=== PATIENT | female | born 1965 | race Caucasian/White ===

== ENCOUNTER 2022-07-03 17:48 | Inpatient (IN) | payer OTHER, SELFPAY ==
[2022-07-03] VITALS (35 sets, daily range): BP systolic 103–166; BP diastolic 47–110; PULSE 65–84; RESP 13–24; TEMP 36.4; O2SAT 94–100
--- NOTE | ~2022-07-03 | XR_ITS ---
EXAMINATION: XR chest 1V portable Exam Date/Time: 07/03/2022 18:00 CDT HISTORY: sob Comparison: None available. RESULT: Lines, tubes, and devices: None. Lungs and pleura: Emphysematous changes. Cardiomediastinal silhouette: Aortic arch calcification. Normal heart size. Other: No acute osseous or upper abdominal finding. IMPRESSION: No acute cardiopulmonary process. Emphysema. Reviewed, dictated and finalized at location K.
--- NOTE | ~2022-07-03 | CT_ITS ---
EXAMINATION: CTA chest PE protocol DATE: 07/03/2022 23:09 INDICATION: Shortness of breath. TECHNIQUE: Computed tomography angiography (CTA) of the chest was performed with 100 mL Omnipaque-350 intravenous contrast timed to evaluate the pulmonary arteries. Coronal maximum intensity projection 3D-reconstructions were created by the technologist. Automated exposure control and iterative reconst ruction technique were employed. The dose-length product was 153.40 mGy-cm. COMPARISON: Chest single view 07/03/2022 FINDINGS: There is severe emphysema. There is mild atelectasis in lingula. There is mild scarring at the lung apices. No pleural effusion. The heart size is normal. No pericardial effusion. There is no pulmonary embolus. There is mild chronic anterior wedging of multiple thoracic vertebral bodies. Ther e is moderate thoracic spondylosis. IMPRESSION: 1. No pulmonary embolus. 2. Severe emphysema. Reviewed, dictated and finalized at location B.
--- NOTE | 2022-07-03 17:52 | ECG_ITS ---
Measurements Intervals [place] Rate: 88 P: 87 ND: 123 QRS: 84 QRSD: 86 T: 59 QT: 311 QTc: 377 Interpretive Statements SINUS RHYTHM NONSPECIFIC ST ABNORMALITY ABNORMAL EKG Electronically Signed On 07-04-2022 9:25:58 CDT by Osvaldo Izaguirre M.D.
[2022-07-03 18:07] LABS: Basophils Percent Auto 0.1 % (0.2-1.2); Eosinophils Percent Auto 0.1 % (0-4.4); Hemoglobin 15.8 g/dL (12.0-15.0); Immature Granulocyte Absolute 0.03 K/mm3 (0.00-0.031); Immature Granulocyte Percent A 0.3 % (0-0.5); Lymphocytes Absolute Auto 2.81 K/mm3 (0.9-3.2); Lymphocytes Percent Auto 23.5 % (18.3-44.2); Mean Corpuscular HGB Conc 32.2 g/dl (32-36); Mean Corpuscular Volume 99.2 fl (80-100); Mean Platelet Volume 9.9 fl (7.4-10.4); Monocytes Absolute Auto 0.9 K/mm3 (0.1-0.6); Monocytes Percent Auto 7.7 % (2.6-8.5); Neutrophils Absolute Auto 8.2 K/mm3 (1.3-6.7); Neutrophils Percent Auto 68.3 % (45.5-73.1); Platelet Count Result 315 k/mm3 (150-375); Red Blood Count 4.94 M/mm3 (4.2-5.4); Red Cell Distribution Width 12.5 % (11.5-14.5)
[2022-07-03 18:18] LABS: Alanine Aminotransferase 30 U/L (6-35); Albumin Level 4.6 g/dL (3.5-5.1); Alkaline Phosphatase 88 U/L (38-126); Anion Gap 9 mmol/L (8-16); Aspartate Amino Transferase 38 U/L (14-36); Bilirubin,Total 0.3 mg/dL (0.2-1.3); Blood Urea Nitrogen 24 mg/dL (7-17); Calcium 9.6 mg/dL (8.4-10.2); Carbon Dioxide 36 mmol/L (22-30); Chloride 91 mmol/L (98-107); Estimated CRCL calculation 43 ml/min; Estimated Glomerular Filt Rate 57; Glucose 98 mg/dL (65-110); Potassium 4.7 mmol/L (3.4-5.0); Sodium 136 mmol/L (137-145)
[2022-07-03 18:44] LABS: Influenza A QL RT-PCR Negative (Negative); Influenza B QL RT-PCR Negative (Negative); SARS-CoV-2 RNA PCR Negative
--- NOTE | 2022-07-03 19:30 | ED.SOB ---
HPI - SOB/Dyspnea General Chief Complaint: Shortness of Breath/Dyspnea Stated Complaint: SOB HX COPD Time Seen by Provider: 07/03/22 19:06 History of Present Illness HPI Narrative: 56-year-old female with atrial fibrillation and emphysema smokes 1 pack/day presents to the emergency room for shortness of breath difficulty breathing for 2-1/2 weeks. `Patient states she has gone to urgent care 2 weeks ago and was diagnosed with an upper respiratory infection. Patient states she was given a 6-day course of prednisone which she completed 2 days ago. Patient states she is having difficulty taking a deep breath. Patient presented via EMS, was placed on oxygen for low SPO2, and given a breathing treatment. Patient admits to little improvement following the breathing treatment. Related Data Allergies Allergy/AdvReac Type Severity Reaction Status Date / Time No Known Allergies Allergy Verified 07/03/22 18:44 Review of Systems Review of Systems: CONSTITUTIONAL: Denies fever, chills, or sweats. EYES: Denies visual changes, redness, or discharge. ENT: Denies rhinorrhea, congestion, sore throat, or otalgia. CARDIOVASCULAR: Denies chest pain, palpitations, or edema. RESPIRATORY: Reports dyspnea. GASTROINTESTINAL: Denies abdominal pain, nausea, vomiting, or diarrhea. GENITOURINARY: Denies dysuria or hematuria. SKIN: Denies rash or itching. MUSCULOSKELETAL: Denies back pain, joint pain, or myalgia. NEUROLOGIC: Denies headache, numbness, dizziness, or weakness. PSYCHIATRIC: Denies anxiety or depression. Exam Narrative: GENERAL: Well-appearing, well-nourished, no physical limitations, and in no acute distress. HEAD: Normocephalic, atraumatic. EYES: Conjunctivae normal, PERRLA and EOMI. CHEST: Decreased breath sounds throughout. Increased accessory muscle use HEART: Regular rate and rhythm. No murmur heard. Normal peripheral pulses. ABDOMEN: Soft, nontender, nondistended, normal active bowel sounds. EXTREMITIES: Normal range of motion. No edema. No clubbing or cyanosis SKIN: Warm, dry, no rash. No noted wounds NEURO: No focal deficits. Alert and oriented x3. MAEW. CN's II-XI intact bilaterally, normal gait PSYCH: Cooperative. Normal mood and affect. Course Course Emergency Course: 1944: Oxygen removed prior to ABG study. SPO2 dropped to 84% on room air. Patient became agitated and demanded O2 be turned back on. O2 at 2L per NC was restarted. SpO2 is now 96% Vital Signs Vital signs: Vital Signs Temperature 36.4 C 07/03/22 17:47 Pulse Rate 84 07/03/22 17:47 Respiratory Rate 14 07/03/22 17:47 Blood Pressure 166/110 H 07/03/22 17:47 Pulse Oximetry 100 07/03/22 17:47 Oxygen Delivery Non-Rebreather Mask 07/03/22 17:47 Oxygen Flow Rate 15 07/03/22 17:47 Temperature 36.4 C 07/03/22 17:47 Pulse Rate 71 07/04/22 01:17 Respiratory Rate 14 07/04/22 01:17 Blood Pressure 98/60 L 07/04/22 00:16 Pulse Oximetry 94 07/03/22 20:01 Oxygen Delivery Room Air 07/03/22 18:39 Oxygen Flow Rate 15 07/03/22 17:47 MDM - SOB/Dyspnea Lab Data Result diagrams: 07/03/22 18:01 07/03/22 18:01 Labs: Lab Results 07/03/22 07/03/22 07/03/22 Range/Units 18:01 18:01 18:01 WBC 12.0 H (4.5-10.0) K/mm3 RBC 4.94 (4.2-5.4) M/mm3 Hgb 15.8 H (12.0-15.0) g/dL Hct 49.0 H (37.0-47.0) % MCV 99.2 (80-100) fl MCH 32.0 (26-34) pg MCHC 32.2 (32-36) g/dl RDW 12.5 (11.5-14.5) % Plt Count 315 (150-375) k/mm3 MPV 9.9 (7.4-10.4) fl Immature Gran % (Auto) 0.3 (0-0.5) % Neut % (Auto) 68.3 (45.5-73.1) % Lymph % (Auto) 23.5 (18.3-44.2) % Mitchell % (Auto) 7.7 (2.6-8.5) % Eos % (Auto) 0.1 (0-4.4) % Baso % (Auto) 0.1 L (0.2-1.2) % Lymph # (Auto) 2.81 (0.9-3.2) K/mm3 Mitchell # (Auto) 0.9 H (0.1-0.6) K/mm3 Eos # (Auto) 0.0 (0-0.3) K/mm3 Baso # (Auto) 0.0 (0.0-0.1) K/mm3 Abs Immat Gran (auto) 0.03 (0.00-0.0
[2022-07-03] MEDS: methylPREDNISolone SOD SUCC 125 MG VIAL IV PUSH (19:36)
--- NOTE | 2022-07-03 19:38 | PC.NURSE ---
O2 sats 85% on room air. Pt unable to catch breathe, labored breathing. Placed on 2 Liters O2 via NC and O2 sats 94% with good wave form. Notified Tyshawn ERP
[2022-07-03] MEDS: IPRATROPIUM BR 0.02% INH SOLN 0.5 MG/2.5 ML VIAL INHALATION (20:03)
[2022-07-03] MEDS: ALBUTEROL SULFATE NEB 2.5 MG/3 ML INH INHALATION (20:03)
[2022-07-03 20:09] LABS: Alveolar/Arterial O2 Gradient 62.4 mmHg; Base Excess ABG 3.9 mEq/l (+/-2.0); Fractional Inspired Oxygen 28 %; HCO3 ABG 30.8 mEq/l (22.0-26.0); Oxygen Content ABG 19.5 %vol (16.0-22.0); Oxygen Saturation ABG 93.8 % (95.0-100.0); Oxyhemoglobin 89.1 % THb (90.0-100.0); PCO2 ABG 55.2 mmHg (35.0-45.0); PO2 ABG 72.1 mmHg (80.0-100.0); PO2 FiO2 Ratio Arterial Blood 2.58 %; Total Hemoglobin 15.6 g/dL (12.0-18.0); pH ABG 7.365 (7.350-7.450)
[2022-07-03 20:10] LABS: Device NASAL CANNULA; Modified Allen's Test Pass; Site Drawn LEFT RADIAL
[2022-07-04] VITALS (28 sets, daily range): BP systolic 98–152; BP diastolic 54–95; PULSE 64–94; RESP 13–20; TEMP 36.4–36.9; O2SAT 94–100; BMI 19.5
--- NOTE | 2022-07-04 02:16 | ADMGEN ---
This patient, Shiela Ontiveros, was admitted to Medical Room 342-. Patient/family oriented to hospital policies and general routines including ID bracelet, bed and alarms, visiting hours, pain management, procedures, bathroom and other care routines, personal items, smoking policy, room service/diet, and visiting hours. Information on how to activate the Rapid Response Team has been discussed. Patient/Family are encouraged to report perceived risks to care and to ask questions if they do not understand what they are told or what they should do.
[2022-07-04] MEDS: ALBUTEROL SULFATE NEB 2.5 MG/3 ML INH INHALATION ×2 (02:40→07:53)
[2022-07-04] MEDS: methylPREDNISolone SOD SUCC 125 MG VIAL 60 MG IV PUSH ×3 (06:24→21:22)
[2022-07-04] MEDS: FLUTICASONE/SALMETEROL 115-21 MCG INHALER 1 PUFF 2 PUFF INHALATION (08:00)
--- NOTE | 2022-07-04 08:11 | PM.IMHP ---
H&P: HPI History of Present Illness Date/Time: 07/04/22 06:30 Chief Complaint: Difficulty breathing Narrative: 56-year-old female with past medical history of COPD, paroxysmal AFib and continues tobacco abuse who presented to the ER with shortness of breath. The patient reports that she has been short of breath since the . She went to urgent care and received a prescription for Medrol Dosepak but for whatever reason the pharmacy could not fill her script until 3 or 4 days ago. Despite taking the Medrol Dosepak her shortness of breath was getting progressively worse. She had a cough that was nonproductive. She stated she she knew that she was having more trouble getting air in his well as breathing out. She was having the lean forward to take deep breaths. Last night her symptoms culminated when she could not get comfortable in bed on her pillows. She finally decided to come into the ER. When she arrived to the ER the patient was satting in the low 90s initially. After nebulizer treatment patient's oxygen saturations dropped to 84%. She had tried using her home nebulizer treatments at least twice a day sometimes up to 4 times a day with little improvement in her symptoms. She was also using her home Symbicort and Spiriva. She has not missed any doses of her medications. She denies any chest pain she does feels tight as if she can not get of breath. She denies any palpitations or diaphoresis. She denies any recent ill contacts. She received her primary vaccine series for COVID but has not had her booster. She wants her flu shot. She denies any GI symptoms. She has not had any difficulty with urination. She reports that she has always had a thin body habitus and reports of extremely good appetite. She was still continuing to work despite her symptoms until the at which time she missed days at work and lost her job because she was still in the probationary period. She recently moved back up here from [place]. She had moved down to [place] for 6 months to be closer to her daughter but was having difficulty finding work so decided to return to this area. Review of Systems Review of Systems: 12 systems were reviewed with pertinent positives and negatives per HPI. Except as documented in the HPI, all other systems were reviewed and are negative. [facility] Past Medical History Medical History (Updated 07/04/22 @ 08:43 by Monica Prabhakar DO) COPD with emphysema Hyperlipidemia Paroxysmal atrial fibrillation Sciatica Tobacco use disorder, continuous Surgical History Surgical History (Updated 07/04/22 @ 08:34 by Monica Prabhakar DO) History of rhinoplasty As a child due to trauma History of right inguinal hernia repair (~2019) Status post open reduction with internal fixation of fracture Left radial fracture as a child Family History Family History (Updated 07/04/22 @ 08:36 by Monica Prabhakar DO) Sibling Hypertension Sibling Breast cancer Cerebral aneurysm Mother Heart disease A-fib Social History Social History (Updated 07/04/22 @ 08:36 by Monica Prabhakar DO) Social History: She has smoked as much as 1 pack of cigarettes per day but has cut back to half a pack of cigarettes per day. She has smoked since she was 15. Smoking packs per day: 0.5 Smoking cigarettes per day: 10.0 Smoking status: Current every day smoker Tobacco type: cigarettes Alcohol intake: never Substance use type: marijuana Spiritual care concerns: No Meds Home Medications and Allergies Home Medications Medication Instructions Recorded Confirmed Type albuterol sulfate 90 mcg/actuation 1 inh inhalation PRN PRN Shortness 07/04/22 07/04/22 History aerosol inhaler Of Breath apixaban 5 mg tablet (Eliquis) 5 mg DAILY 07/04/22 07/04/22 History aspirin 81 mg chewable tablet 81 mg PO DAILY 07/04/22 07/04/22 History atorvastatin 80 mg tablet 80 mg PO DAILY 07/04/22 07/04/22 History budesonide-formoterol HFA 160 2 p
[2022-07-04] MEDS: METOPROLOL SUCCINATE EXT REL 100 MG TABCR PO (10:04)
[2022-07-04] MEDS: ATORVASTATIN 40 MG TABLET 80 MG PO (10:04)
[2022-07-04] MEDS: ASPIRIN 81 MG CHEWABLE TABLET PO (10:04)
[2022-07-04] MEDS: APIXABAN 5 MG TABLET BY MOUTH ×2 (10:06→21:22)
[2022-07-04] MEDS: IPRATROPIUM BR 0.02% INH SOLN 0.5 MG/2.5 ML VIAL INHALATION ×3 (12:44→20:49)
[2022-07-04] MEDS: ALBUTEROL SULFATE NEB 2.5 MG/3 ML INH 5 MG INHALATION ×3 (12:46→20:49)
[2022-07-04] MEDS: guaiFENesin 12 HR 600 MG TABCR PO (21:22)
[2022-07-05] VITALS (19 sets, daily range): BP systolic 112–132; BP diastolic 56–63; PULSE 66–84; RESP 14–22; TEMP 36.2–37.1; O2SAT 91–100
[2022-07-05] MEDS: IPRATROPIUM BR 0.02% INH SOLN 0.5 MG/2.5 ML VIAL INHALATION ×6 (00:47→20:02)
[2022-07-05] MEDS: ALBUTEROL SULFATE NEB 2.5 MG/3 ML INH 5 MG INHALATION ×7 (00:47→20:02)
[2022-07-05] MEDS: methylPREDNISolone SOD SUCC 125 MG VIAL 60 MG IV PUSH (06:23)
[2022-07-05] MEDS: FLUTICASONE/SALMETEROL 115-21 MCG INHALER 1 PUFF 2 PUFF INHALATION ×2 (07:34→20:03)
[2022-07-05] MEDS: ATORVASTATIN 40 MG TABLET 80 MG PO (08:34)
[2022-07-05] MEDS: APIXABAN 5 MG TABLET BY MOUTH ×2 (08:34→21:06)
[2022-07-05] MEDS: ASPIRIN 81 MG CHEWABLE TABLET PO (08:34)
[2022-07-05] MEDS: METOPROLOL SUCCINATE EXT REL 100 MG TABCR PO (08:35)
[2022-07-05] MEDS: guaiFENesin 12 HR 600 MG TABCR PO ×2 (08:35→21:06)
--- NOTE | 2022-07-05 12:49 | PM.IMPN ---
Progress Note: A&P Assessment and Plan (1) Acute on chronic respiratory failure with hypoxia and hypercapnia: Code(s): J96.21 - Acute and chronic respiratory failure with hypoxia; J96.22 - Acute and chronic respiratory failure with hypercapnia Status: Acute Assessment and Plan: will discontinue IV steroids and start prednisone 50 mg daily tomorrow pulmonology consult pending (2) Acute exacerbation of chronic obstructive airways disease: Code(s): J44.1 - Chronic obstructive pulmonary disease with (acute) exacerbation Status: Acute Assessment and Plan: added Mucomyst, Mucinex, Afrin, pep therapy, continue home Symbicort, scheduled albuterol and ipratropium (3) Tobacco use disorder, continuous: Code(s): F17.209 - Nicotine dependence, unspecified, with unspecified nicotine-induced disorders Status: Acute Assessment and Plan: continue Chantix, currently on 0.5 mg daily, will increase to 0.5 mg BID days 4-7, then 1 mg BID Plan DVT prophylaxis with SCDs GI prophylaxis not indicated Code status full code Subjective Date/time seen: 07/05/22 12:49 Interval history: Patient states she feels much better than yesterday, but still extremely short of breath. She would like to go home tomorrow on oxygen and oral steroids. She denies any fevers or chills, no sick contacts or recent travel. She did complete an outpatient Z-Joshua that did not seem to do much for her. No overnight events noted. No chest pain. No nausea, vomiting or diarrhea. No fevers or chills. Review of Systems Review of Systems: 12 point review of systems was assessed and was negative except as noted in the HPI Exam Narrative: General: Mild acute respiratory distress HEENT: Atraumatic, normocephalic, mucous membranes moist CV: Regular rate and rhythm, S1, S2 Lungs: extremely diminished lung sounds throughout, some very small and expiratory wheezes, poor air entry Abdomen: Soft, nontender, nondistended Extremities: Normal to inspection Skin: No rashes noted, no lesions or wounds seen Psych: Euthymic, normal affect Objective Data Vital Signs Vital Signs: Vital Signs - 24 hr 07/04/22 12:56 07/04/22 14:38 07/04/22 16:10 Temperature 98.4 F Pulse Rate 86 72 83 Respiratory Rate 15 16 16 Blood Pressure 136/95 H Pulse Oximetry 100 Oxygen Delivery Oxygen Flow Rate 07/04/22 16:17 07/04/22 19:43 07/04/22 20:50 Temperature 98 F Pulse Rate 87 84 94 Respiratory Rate 16 20 18 Blood Pressure 152/82 H Pulse Oximetry 94 Oxygen Delivery Oxygen Flow Rate 07/04/22 20:52 07/04/22 20:30 07/05/22 00:47 Temperature Pulse Rate 74 Respiratory Rate 14 Blood Pressure Pulse Oximetry 95 95 Oxygen Delivery Nasal Cannula Nasal Cannula Oxygen Flow Rate 3 2 07/05/22 05:05 07/05/22 05:34 07/05/22 07:35 Temperature 97.2 F L Pulse Rate 72 66 72 Respiratory Rate 16 18 18 Blood Pressure 130/63 Pulse Oximetry 100 Oxygen Delivery Oxygen Flow Rate 07/05/22 07:35 07/05/22 07:46 07/05/22 08:35 Temperature Pulse Rate 76 67 Respiratory Rate 22 H Blood Pressure Pulse Oximetry 98 Oxygen Delivery Nasal Cannula Oxygen Flow Rate 2 07/05/22 08:30 07/05/22 11:22 07/05/22 11:22 Temperature Pulse Rate 71 Respiratory Rate 22 H Blood Pressure Pulse Oximetry 98 91 Oxygen Delivery Nasal Cannula Nasal Cannula Oxygen Flow Rate 2 2 07/05/22 11:28 Temperature Pulse Rate 79 Respiratory Rate 22 H Blood Pressure Pulse Oximetry Oxygen Delivery Oxygen Flow Rate Intake/Output Intake/Output: Intake & Output 07/02/22 07/03/22 07/04/22 07/05/22 23:59 23:59 23:59 23:59 Intake Total 1550 630 Balance 1550 630 Meds/Results Medications: Active Medications Generic Name Dose Route Start Last Admin Trade Name Freq PRN Reason Stop Dose Admin Albuterol 5 mg 07/04/22 12:00 07/05/22 11:19
[2022-07-05 13:04] LABS: Basophils Percent Auto 0.1 % (0.2-1.2); Hematocrit 48.1 % (37.0-47.0); Hemoglobin 15.2 g/dL (12.0-15.0); Immature Granulocyte Absolute 0.06 K/mm3 (0.00-0.031); Immature Granulocyte Percent A 0.5 % (0-0.5); Lymphocytes Absolute Auto 0.62 K/mm3 (0.9-3.2); Lymphocytes Percent Auto 4.8 % (18.3-44.2); Mean Corpuscular HGB Conc 31.6 g/dl (32-36); Mean Corpuscular Hemoglobin 31.6 pg (26-34); Mean Platelet Volume 10.1 fl (7.4-10.4); Monocytes Absolute Auto 0.7 K/mm3 (0.1-0.6); Monocytes Percent Auto 5.1 % (2.6-8.5); Neutrophils Absolute Auto 11.6 K/mm3 (1.3-6.7); Neutrophils Percent Auto 89.5 % (45.5-73.1); Platelet Count Result 291 k/mm3 (150-375); Red Blood Count 4.81 M/mm3 (4.2-5.4); White Blood Count 12.9 K/mm3 (4.5-10.0)
[2022-07-05 13:16] LABS: Alanine Aminotransferase 31 U/L (6-35); Albumin Level 4.4 g/dL (3.5-5.1); Alkaline Phosphatase 100 U/L (38-126); Anion Gap 8 mmol/L (8-16); Aspartate Amino Transferase 35 U/L (14-36); Bilirubin,Total 0.5 mg/dL (0.2-1.3); Blood Urea Nitrogen 20 mg/dL (7-17); Calcium 9.2 mg/dL (8.4-10.2); Carbon Dioxide 35 mmol/L (22-30); Chloride 92 mmol/L (98-107); Estimated CRCL calculation 67 ml/min; Estimated Glomerular Filt Rate > 60; Glucose 133 mg/dL (65-110); Potassium 4.3 mmol/L (3.4-5.0); Sodium 135 mmol/L (137-145)
[2022-07-05] MEDS: LORATADINE 10 MG TABLET PO (14:34)
[2022-07-05] MEDS: OXYMETAZOLINE HCL 0.05% NAS 15 ML BTL (*BKC) 1 SPRAY NASAL (14:34)
[2022-07-05] MEDS: guaiFENesin 600 MG/DEXTROMETHORPHAN 30 MG SR TAB 12 HR 1 TAB PO ×2 (14:35→21:06)
[2022-07-05] MEDS: DORNASE ALFA INH SOLN 1 MG/ML 2.5 ML AMP 2.5 MG INHALATION (20:02)
[2022-07-06] VITALS (25 sets, daily range): BP systolic 110–135; BP diastolic 58–72; PULSE 69–104; RESP 16–24; TEMP 36.6–36.7; O2SAT 86–100
[2022-07-06] MEDS: ALBUTEROL SULFATE NEB 2.5 MG/3 ML INH 5 MG INHALATION ×5 (00:05→15:55)
[2022-07-06] MEDS: IPRATROPIUM BR 0.02% INH SOLN 0.5 MG/2.5 ML VIAL INHALATION ×6 (00:05→19:57)
[2022-07-06 05:56] LABS: Basophils Percent Auto 0.2 % (0.2-1.2); Hematocrit 43.7 % (37.0-47.0); Hemoglobin 13.8 g/dL (12.0-15.0); Immature Granulocyte Absolute 0.08 K/mm3 (0.00-0.031); Immature Granulocyte Percent A 0.7 % (0-0.5); Lymphocytes Absolute Auto 1.87 K/mm3 (0.9-3.2); Lymphocytes Percent Auto 15.3 % (18.3-44.2); Mean Corpuscular HGB Conc 31.6 g/dl (32-36); Mean Corpuscular Volume 101.4 fl (80-100); Mean Platelet Volume 10.3 fl (7.4-10.4); Monocytes Absolute Auto 0.9 K/mm3 (0.1-0.6); Monocytes Percent Auto 6.9 % (2.6-8.5); Neutrophils Absolute Auto 9.4 K/mm3 (1.3-6.7); Neutrophils Percent Auto 76.9 % (45.5-73.1); Platelet Count Result 245 k/mm3 (150-375); Red Blood Count 4.31 M/mm3 (4.2-5.4); Red Cell Distribution Width 11.9 % (11.5-14.5); White Blood Count 12.2 K/mm3 (4.5-10.0)
[2022-07-06 06:17] LABS: Alanine Aminotransferase 32 U/L (6-35); Albumin Level 3.7 g/dL (3.5-5.1); Alkaline Phosphatase 73 U/L (38-126); Anion Gap 4 mmol/L (8-16); Aspartate Amino Transferase 33 U/L (14-36); Bilirubin,Total 0.2 mg/dL (0.2-1.3); Blood Urea Nitrogen 21 mg/dL (7-17); Carbon Dioxide 34 mmol/L (22-30); Chloride 95 mmol/L (98-107); Estimated CRCL calculation 79 ml/min; Estimated Glomerular Filt Rate > 60; Glucose 88 mg/dL (65-110); Potassium 4.6 mmol/L (3.4-5.0); Sodium 133 mmol/L (137-145)
[2022-07-06] MEDS: DORNASE ALFA INH SOLN 1 MG/ML 2.5 ML AMP 2.5 MG INHALATION (08:28)
[2022-07-06] MEDS: FLUTICASONE/SALMETEROL 115-21 MCG INHALER 1 PUFF 2 PUFF INHALATION ×2 (08:29→19:57)
[2022-07-06] MEDS: predniSONE 40 MG, predniSONE 10 MG 50 MG PO (09:07)
[2022-07-06] MEDS: ASPIRIN 81 MG CHEWABLE TABLET PO (09:07)
[2022-07-06] MEDS: guaiFENesin 600 MG/DEXTROMETHORPHAN 30 MG SR TAB 12 HR 1 TAB PO ×2 (09:08→20:20)
[2022-07-06] MEDS: METOPROLOL SUCCINATE EXT REL 100 MG TABCR PO (09:08)
[2022-07-06] MEDS: ATORVASTATIN 40 MG TABLET 80 MG PO (09:10)
[2022-07-06] MEDS: VARENICLINE 0.5 MG TABLET PO (09:10)
[2022-07-06] MEDS: APIXABAN 5 MG TABLET BY MOUTH ×2 (09:10→20:20)
[2022-07-06] MEDS: LORATADINE 10 MG TABLET PO (09:11)
--- NOTE | 2022-07-06 11:41 | PM.IMPN ---
Progress Note: A&P Assessment and Plan (1) Acute on chronic respiratory failure with hypoxia and hypercapnia: Code(s): J96.21 - Acute and chronic respiratory failure with hypoxia; J96.22 - Acute and chronic respiratory failure with hypercapnia Status: Acute Assessment and Plan: started on IV steroid switched to oral feeling well today Will put her back on IV pulmonology consult pending (2) Acute exacerbation of chronic obstructive airways disease: Code(s): J44.1 - Chronic obstructive pulmonary disease with (acute) exacerbation Status: Acute Assessment and Plan: added Mucomyst, Mucinex, Afrin, pep therapy, continue home Symbicort, scheduled albuterol and ipratropium Add schedule Mucomyst (3) Tobacco use disorder, continuous: Code(s): F17.209 - Nicotine dependence, unspecified, with unspecified nicotine-induced disorders Status: Acute Assessment and Plan: continue Chantix, counseled on smoking cessation Plan DVT prophylaxis with SCDs GI prophylaxis not indicated Code status full code Subjective Date/time seen: 07/06/22 11:41 Interval history: Patient still feels short of breath. She still requiring oxygen. Cough present but it is dry. No fever or chills Review of Systems Review of Systems: All systems reviewed & are unremarkable except as noted in HPI and below Exam Narrative: General: no acute respiratory distress; alert and oriented x3 HEENT: Atraumatic, normocephalic, mucous membranes moist CV: Regular rate and rhythm, S1, S2 Lungs: extremely diminished lung sounds throughout, no wheezes or crackles Abdomen: Soft, nontender, nondistended Extremities: Normal to inspection Skin: No rashes noted, no lesions or wounds seen Psych: Euthymic, normal affect Objective Data Vital Signs Vital Signs: Vital Signs - 24 hr 07/05/22 14:20 07/05/22 14:32 07/05/22 15:00 Temperature 98.8 F Pulse Rate 76 81 78 Respiratory Rate 22 H 22 H 18 Blood Pressure 112/60 Pulse Oximetry 99 Oxygen Delivery Oxygen Flow Rate 07/05/22 16:56 07/05/22 17:06 07/05/22 20:03 Temperature Pulse Rate 84 75 79 Respiratory Rate 22 H 20 22 H Blood Pressure Pulse Oximetry Oxygen Delivery Oxygen Flow Rate 07/05/22 20:09 07/05/22 20:26 07/05/22 20:39 Temperature 97.2 F L Pulse Rate 77 76 Respiratory Rate 22 H 18 Blood Pressure 132/56 L Pulse Oximetry 95 100 Oxygen Delivery Nasal Cannula Oxygen Flow Rate 3 07/05/22 20:00 07/06/22 00:05 07/06/22 00:15 Temperature Pulse Rate 76 74 Respiratory Rate 20 20 Blood Pressure Pulse Oximetry 100 Oxygen Delivery Nasal Cannula Oxygen Flow Rate 3 07/06/22 05:58 07/06/22 04:21 07/06/22 04:30 Temperature 98 F Pulse Rate 74 74 75 Respiratory Rate 20 20 20 Blood Pressure 110/59 L Pulse Oximetry 100 Oxygen Delivery Oxygen Flow Rate 07/06/22 08:25 07/06/22 08:30 07/06/22 08:37 Temperature Pulse Rate 77 69 Respiratory Rate 18 18 Blood Pressure Pulse Oximetry 96 Oxygen Delivery Nasal Cannula Oxygen Flow Rate 3 07/06/22 09:08 07/06/22 09:10 Temperature Pulse Rate 78 78 Respiratory Rate 18 Blood Pressure Pulse Oximetry 98 Oxygen Delivery Nasal Cannula Oxygen Flow Rate 3 Intake/Output Intake/Output: Intake & Output 07/03/22 07/04/22 07/05/22 07/06/22 23:59 23:59 23:59 23:59 Intake Total 1550 1110 580 Balance 1550 1110 580 Meds/Results Medications: Active Medications Generic Name Dose Route Start Last Admin Trade Name Lucianq PRN Reason Stop Dose Admin Albuterol 5 mg 07/04/22 12:00 07/06/22 08:28 Albuterol Sulfate Neb 2.5 Mg/3 Ml Inh INHALATION 5 mg Q4HRT SCAR Administration Apixaban 5 mg 07/04/22 21:00 07/06/22 09:10 Apixaban 5 Mg Tablet BY MOUTH 5 mg Q12HR SCAR Administration Aspirin 81 mg 07/04/22 09:00 07/06/22 09:07 Aspirin 81 Mg Chewable Tablet PO
--- NOTE | 2022-07-06 13:30 | HOMEO2EVAL ---
Evaluation was performed at [facility] Home Oxygen Evaluation RC: Home Oxygen (O2) Evaluation Start: 07/06/22 05:00 Freq: ONCE Status: Active Protocol: RPE Activity Type Activity Date Activity User E-sign Co-sign Detail Recorded Client Recorded Date Recorded By Document 07/06/22 12:45 DJO [email or web address] 07/06/22 13:30 DJO Document 07/06/22 12:50 [email or web address] [email or web address] 07/06/22 13:30 DJO Document 07/06/22 12:55 [email or web address] [email or web address] 07/06/22 13:30 DJO Document 07/06/22 13:00 [email or web address] [email or web address] 07/06/22 13:30 DJO Document 07/06/22 13:05 [email or web address] [email or web address] 07/06/22 13:30 DJO Document 07/06/22 13:15 [email or web address] [email or web address] 07/06/22 13:30 DJO 07/06/22 07/06/22 07/06/22 12:45 12:50 12:55 Home O2 Evaluation [Oxygen] -Test Phase Resting Resting Resting -Oxygen Delivery Room Air Nasal Cannula Nasal Cannula -Oxygen Flow Rate (L/min) 1 2 [Pulse Oximetry] -Pulse Oximetry (90-100 %) 86 L 88 L 91 [Pulse Rate] -Pulse Rate (60-100 beats/min) 88 85 82 [Exercise] -Ambulation Distance (feet) -Ambulation Distance (meters) [Charges] -Treatment Charges O2 Evaluation - Inpatient 07/06/22 07/06/22 07/06/22 13:00 13:05 13:15 Home O2 Evaluation [Oxygen] -Test Phase Exercise Exercise Resting -Oxygen Delivery Nasal Cannula Nasal Cannula Nasal Cannula -Oxygen Flow Rate (L/min) 2 3 2 [Pulse Oximetry] -Pulse Oximetry (90-100 %) 87 L 91 91 [Pulse Rate] -Pulse Rate (60-100 beats/min) 100 104 H 85 [Exercise] -Ambulation Distance (feet) 500 -Ambulation Distance (meters) 152.39 [Charges] -Treatment Charges
[2022-07-06] MEDS: ACETYLCYSTEINE 20% INHAL SOLN 800 MG/4 ML VIAL 200 MG INHALATION ×2 (15:55→19:57)
[2022-07-06] MEDS: methylPREDNISolone SOD SUCC 40 MG VIAL IV PUSH (17:49)
[2022-07-06] MEDS: ALBUTEROL SULFATE NEB 2.5 MG/3 ML INH INHALATION (19:57)
--- NOTE | 2022-07-06 20:03 | PCRCNOTE ---
RT called Dr. Caruso about medication change. Pt was receiving Pulmozyme BID, Mucomyst Q6, and Duoneb Q4. Mucomyst must be given with a MANDA due to Mucomyst causing bronchospasms. DR agreed to have Duoneb and Mucomyst put on the same frequency (Q6H). also agreed to DC Pulmozyme due to it being in the same class as Mucomyst. RT entered the medication changes per DR request.
[2022-07-06] MEDS: guaiFENesin 12 HR 600 MG TABCR PO (20:19)
[2022-07-07] VITALS (16 sets, daily range): BP systolic 115–140; BP diastolic 62–76; PULSE 60–84; RESP 16–22; TEMP 36.6–37.3; O2SAT 93–100
[2022-07-07] MEDS: ALBUTEROL SULFATE NEB 2.5 MG/3 ML INH INHALATION ×4 (02:53→21:27)
[2022-07-07] MEDS: ACETYLCYSTEINE 20% INHAL SOLN 800 MG/4 ML VIAL 200 MG INHALATION ×4 (02:53→21:27)
[2022-07-07] MEDS: IPRATROPIUM BR 0.02% INH SOLN 0.5 MG/2.5 ML VIAL INHALATION ×4 (02:53→21:27)
[2022-07-07 05:50] LABS: Basophils Percent Auto 0.1 % (0.2-1.2); Hematocrit 43.9 % (37.0-47.0); Immature Granulocyte Absolute 0.13 K/mm3 (0.00-0.031); Immature Granulocyte Percent A 0.9 % (0-0.5); Lymphocytes Absolute Auto 0.96 K/mm3 (0.9-3.2); Lymphocytes Percent Auto 6.9 % (18.3-44.2); Mean Corpuscular HGB Conc 31.9 g/dl (32-36); Mean Corpuscular Hemoglobin 31.1 pg (26-34); Mean Corpuscular Volume 97.6 fl (80-100); Mean Platelet Volume 10.1 fl (7.4-10.4); Monocytes Absolute Auto 0.7 K/mm3 (0.1-0.6); Monocytes Percent Auto 5.2 % (2.6-8.5); Neutrophils Percent Auto 86.9 % (45.5-73.1); Platelet Count Result 282 k/mm3 (150-375); Red Cell Distribution Width 11.7 % (11.5-14.5); White Blood Count 13.9 K/mm3 (4.5-10.0)
[2022-07-07 06:03] LABS: Alanine Aminotransferase 56 U/L (6-35); Albumin Level 3.8 g/dL (3.5-5.1); Alkaline Phosphatase 97 U/L (38-126); Anion Gap 3 mmol/L (8-16); Aspartate Amino Transferase 58 U/L (14-36); Bilirubin,Total 0.3 mg/dL (0.2-1.3); Blood Urea Nitrogen 25 mg/dL (7-17); Calcium 8.7 mg/dL (8.4-10.2); Carbon Dioxide 37 mmol/L (22-30); Chloride 93 mmol/L (98-107); Estimated CRCL calculation 67 ml/min; Estimated Glomerular Filt Rate > 60; Glucose 118 mg/dL (65-110); Potassium 4.7 mmol/L (3.4-5.0); Sodium 133 mmol/L (137-145)
[2022-07-07] MEDS: FLUTICASONE/SALMETEROL 115-21 MCG INHALER 1 PUFF 2 PUFF INHALATION ×2 (08:04→21:27)
[2022-07-07] MEDS: guaiFENesin 600 MG/DEXTROMETHORPHAN 30 MG SR TAB 12 HR 1 TAB PO ×2 (08:41→20:24)
[2022-07-07] MEDS: guaiFENesin 12 HR 600 MG TABCR PO ×2 (08:41→20:24)
[2022-07-07] MEDS: ATORVASTATIN 40 MG TABLET 80 MG PO (08:41)
[2022-07-07] MEDS: METOPROLOL SUCCINATE EXT REL 100 MG TABCR PO (08:41)
[2022-07-07] MEDS: APIXABAN 5 MG TABLET BY MOUTH ×2 (08:41→20:24)
[2022-07-07] MEDS: ASPIRIN 81 MG CHEWABLE TABLET PO (08:41)
[2022-07-07] MEDS: LORATADINE 10 MG TABLET PO (08:41)
[2022-07-07] MEDS: methylPREDNISolone SOD SUCC 40 MG VIAL IV PUSH ×2 (08:42→16:22)
[2022-07-07] MEDS: VARENICLINE 0.5 MG TABLET PO (08:42)
--- NOTE | 2022-07-07 14:07 | PM.IMPN ---
Progress Note: A&P Assessment and Plan (1) Acute on chronic respiratory failure with hypoxia and hypercapnia: Code(s): J96.21 - Acute and chronic respiratory failure with hypoxia; J96.22 - Acute and chronic respiratory failure with hypercapnia Status: Acute Assessment and Plan: started on IV steroid switched to oral feeling well today Will put her back on IV pulmonology consult pending Continue on IV steroid. And acetyl cystine inhalation (2) Acute exacerbation of chronic obstructive airways disease: Code(s): J44.1 - Chronic obstructive pulmonary disease with (acute) exacerbation Status: Acute Assessment and Plan: added Mucomyst, Mucinex, Afrin, pep therapy, continue home Symbicort, scheduled albuterol and ipratropium Add schedule Mucomyst (3) Tobacco use disorder, continuous: Code(s): F17.209 - Nicotine dependence, unspecified, with unspecified nicotine-induced disorders Status: Acute Assessment and Plan: continue Chantix, counseled on smoking cessation Plan DVT prophylaxis with SCDs GI prophylaxis not indicated Code status full code Subjective Date/time seen: 07/07/22 14:07 Interval history: patient in feeling a bit short of breath still not able to cough out a whole lot gets winded. No fever chills. Denies any chest pain. Review of Systems Review of Systems: All systems reviewed & are unremarkable except as noted in HPI and below Exam Narrative: General: no acute respiratory distress; alert and oriented x3 HEENT: Atraumatic, normocephalic, mucous membranes moist CV: Regular rate and rhythm, S1, S2 Lungs: extremely diminished lung sounds throughout, no wheezes or crackles Abdomen: Soft, nontender, nondistended Extremities: Normal to inspection Skin: No rashes noted, no lesions or wounds seen Psych: Euthymic, normal affect Objective Data Vital Signs Vital Signs: Vital Signs - 24 hr 07/06/22 15:50 07/06/22 16:02 07/06/22 19:57 Temperature Pulse Rate 75 74 80 Respiratory Rate 18 18 16 Blood Pressure Pulse Oximetry Oxygen Delivery Oxygen Flow Rate 07/06/22 20:02 07/06/22 20:00 07/06/22 20:00 Temperature 98.1 F Pulse Rate 70 Respiratory Rate 24 H Blood Pressure 135/72 Pulse Oximetry 97 97 96 Oxygen Delivery Nasal Cannula Nasal Cannula Oxygen Flow Rate 3 3 07/06/22 22:00 07/07/22 02:53 07/07/22 03:07 Temperature 98.1 F Pulse Rate 74 78 75 Respiratory Rate 22 H 16 16 Blood Pressure 130/70 Pulse Oximetry 96 Oxygen Delivery Oxygen Flow Rate 07/07/22 00:00 07/07/22 03:58 07/07/22 05:43 Temperature 98.5 F 98.5 F 97.9 F Pulse Rate 60 62 70 Respiratory Rate 22 H 22 H 20 Blood Pressure 140/76 140/71 115/73 Pulse Oximetry 96 96 100 Oxygen Delivery Oxygen Flow Rate 07/07/22 08:05 07/07/22 08:05 07/07/22 08:18 Temperature Pulse Rate 76 72 Respiratory Rate 16 16 Blood Pressure Pulse Oximetry 96 Oxygen Delivery Nasal Cannula Oxygen Flow Rate 2 07/07/22 08:00 07/07/22 08:41 07/07/22 08:00 Temperature Pulse Rate 72 Respiratory Rate Blood Pressure Pulse Oximetry 97 96 Oxygen Delivery Nasal Cannula Nasal Cannula Oxygen Flow Rate 3 2 07/07/22 13:18 Temperature 99.1 F Pulse Rate 77 Respiratory Rate 22 H Blood Pressure 130/63 Pulse Oximetry 98 Oxygen Delivery Oxygen Flow Rate Intake/Output Intake/Output: Intake & Output 07/04/22 07/05/22 07/06/22 07/07/22 23:59 23:59 23:59 23:59 Intake Total 1550 1110 1420 840 Output Total 0 Balance 1550 1110 1420 840 Meds/Results Medications: Active Medications Generic Name Dose Route Start Last Admin Trade Name Freq PRN Reason Stop Dose Admin Acetylcysteine 200 mg 07/06/22 14:00 07/07/22 08:04 Acetylcysteine 20% Inhal Soln 800 Mg/4 Ml Vial INHALATION 200 mg Q6HRT SCAR Administration Albuterol 2.5 mg 07/06/22 20:00 07/07/22 08:04 Albuterol S
[2022-07-08] VITALS (9 sets, daily range): BP systolic 151; BP diastolic 76; PULSE 62–85; RESP 16–18; TEMP 36.8; O2SAT 87–92
[2022-07-08] MEDS: IPRATROPIUM BR 0.02% INH SOLN 0.5 MG/2.5 ML VIAL INHALATION ×3 (02:45→13:25)
[2022-07-08] MEDS: ACETYLCYSTEINE 20% INHAL SOLN 800 MG/4 ML VIAL 200 MG INHALATION ×3 (02:45→13:25)
[2022-07-08] MEDS: ALBUTEROL SULFATE NEB 2.5 MG/3 ML INH INHALATION ×3 (02:45→13:25)
[2022-07-08 05:53] LABS: Basophils Absolute Auto 0.1 K/mm3 (0.0-0.1); Basophils Percent Auto 0.4 % (0.2-1.2); Hematocrit 46.8 % (37.0-47.0); Hemoglobin 15.2 g/dL (12.0-15.0); Immature Granulocyte Absolute 0.16 K/mm3 (0.00-0.031); Immature Granulocyte Percent A 1.2 % (0-0.5); Lymphocytes Absolute Auto 1.08 K/mm3 (0.9-3.2); Mean Corpuscular HGB Conc 32.5 g/dl (32-36); Mean Corpuscular Hemoglobin 31.4 pg (26-34); Mean Corpuscular Volume 96.7 fl (80-100); Mean Platelet Volume 10.3 fl (7.4-10.4); Monocytes Absolute Auto 0.8 K/mm3 (0.1-0.6); Monocytes Percent Auto 5.7 % (2.6-8.5); Neutrophils Absolute Auto 11.4 K/mm3 (1.3-6.7); Neutrophils Percent Auto 84.7 % (45.5-73.1); Platelet Count Result 294 k/mm3 (150-375); Red Blood Count 4.84 M/mm3 (4.2-5.4); Red Cell Distribution Width 11.7 % (11.5-14.5); White Blood Count 13.5 K/mm3 (4.5-10.0)
[2022-07-08 06:01] LABS: Alanine Aminotransferase 62 U/L (6-35); Alkaline Phosphatase 98 U/L (38-126); Anion Gap 5 mmol/L (8-16); Aspartate Amino Transferase 63 U/L (14-36); Bilirubin,Total 0.3 mg/dL (0.2-1.3); Blood Urea Nitrogen 22 mg/dL (7-17); Carbon Dioxide 35 mmol/L (22-30); Chloride 92 mmol/L (98-107); Estimated CRCL calculation 67 ml/min; Estimated Glomerular Filt Rate > 60; Glucose 98 mg/dL (65-110); Potassium 4.4 mmol/L (3.4-5.0); Sodium 132 mmol/L (137-145)
[2022-07-08] MEDS: FLUTICASONE/SALMETEROL 115-21 MCG INHALER 1 PUFF 2 PUFF INHALATION (09:04)
[2022-07-08] MEDS: guaiFENesin 600 MG/DEXTROMETHORPHAN 30 MG SR TAB 12 HR 1 TAB PO (09:25)
[2022-07-08] MEDS: APIXABAN 5 MG TABLET BY MOUTH (09:25)
[2022-07-08] MEDS: ASPIRIN 81 MG CHEWABLE TABLET PO (09:25)
[2022-07-08] MEDS: METOPROLOL SUCCINATE EXT REL 100 MG TABCR PO (09:25)
[2022-07-08] MEDS: ATORVASTATIN 40 MG TABLET 80 MG PO (09:25)
[2022-07-08] MEDS: guaiFENesin 12 HR 600 MG TABCR PO (09:26)
[2022-07-08] MEDS: LORATADINE 10 MG TABLET PO (09:26)
[2022-07-08] MEDS: methylPREDNISolone SOD SUCC 40 MG VIAL IV PUSH (09:26)
[2022-07-08] MEDS: VARENICLINE 0.5 MG TABLET PO (09:27)
--- NOTE | 2022-07-08 12:55 | PM.DS ---
DS: Admitting Diagnosis Discharge Date 07/08/2022 Admitting Diagnosis shortness of breath DS: Discharge Diagnosis Discharge Diagnosis (1) Acute on chronic respiratory failure with hypoxia and hypercapnia: Code(s): J96.21 - Acute and chronic respiratory failure with hypoxia; J96.22 - Acute and chronic respiratory failure with hypercapnia Status: Acute (2) Acute exacerbation of chronic obstructive airways disease: Code(s): J44.1 - Chronic obstructive pulmonary disease with (acute) exacerbation Status: Acute (3) Tobacco use disorder, continuous: Code(s): F17.209 - Nicotine dependence, unspecified, with unspecified nicotine-induced disorders Status: Acute DS: Summary Hospital Course Hospital Course: # acute on chronic respiratory failure with hypoxia and hypercapnia: ?started on IV steroid Initially switched to oral however got worse sent to for back on IV steroid. Continue to improve. Will switch to oral and TAVR as an outpatient basis. She is back on her oxygen at baseline level by the time of discharge. Continue bronchodilators as previously prescribed and ordered. Chest x-rays negative. CTA came back negative for PE does show severe emphysema # acute COPD exacerbation: ?added Mucomyst, Mucinex, Afrin, pep therapy, continue home Symbicort, scheduled albuterol and ipratropium Add schedule? Mucomyst Continue to improve. Steroid taper as outpatient basis # tobacco use disorder: Started on Chantix which will be continued,? counseled on smoking cessation #?DVT prophylaxis with SCDs #GI prophylaxis not indicated #Code status full code Time Spent with Patient Time attestation: Total time spent providing and/or coordinating discharge services: 40 minutes Exam Narrative: General: no acute respiratory distress; alert and oriented x3 HEENT: Atraumatic, normocephalic, mucous membranes moist CV: Regular rate and rhythm, S1, S2 Lungs: extremely diminished lung sounds throughout, no wheezes or crackles Abdomen: Soft, nontender, nondistended Extremities: Normal to inspection Skin: No rashes noted, no lesions or wounds seen Psych: Euthymic, normal affect DS: Data Data Completed and Pending Labs on day of discharge: Labs from last 24 hours 07/08/22 07/08/22 05:17 05:17 WBC 13.5 H RBC 4.84 Hgb 15.2 H Hct 46.8 MCV 96.7 MCH 31.4 MCHC 32.5 RDW 11.7 Plt Count 294 MPV 10.3 Immature Gran % (Auto) 1.2 H Neut % (Auto) 84.7 H Lymph % (Auto) 8.0 L [place] % (Auto) 5.7 Eos % (Auto) 0.0 Baso % (Auto) 0.4 Lymph # (Auto) 1.08 [place] # (Auto) 0.8 H Eos # (Auto) 0.0 Baso # (Auto) 0.1 Abs Immat Gran (auto) 0.16 H Absolute Neuts (auto) 11.4 H Absolute Nucleated RBC 0.0 Nucleated RBC % 0.0 Sodium 132 L Potassium 4.4 Chloride 92 L Carbon Dioxide 35 H Anion Gap 5 L BUN 22 H Creatinine 0.60 L Estim Creat Clear Calc 67 Estimated GFR > 60 Glucose 98 Calcium 9.0 Total Bilirubin 0.3 AST 63 H ALT 62 H Alkaline Phosphatase 98 Total Protein 7.0 Albumin 4.0 Imaging Radiologist's impression: ITS Impressions Chest X-Ray 07/03/22 18:15 IMPRESSION: No acute cardiopulmonary process. Emphysema. Chest CTA 07/04/22 08:26 IMPRESSION: 1. No pulmonary embolus. 2. Severe emphysema. Discharge Plan Discharge Attending physician on discharge: Nathen Hendricks Consulting providers: Leslie Pederson Discharging Clinician: Nathen Hendricks Anticipated Discharge Date/Time: 07/08/22 12:49 Patient Disposition: Home, Self-Care Activity: as tolerated Diet: regular Discharge Instructions: follow-up with a wood craftsman in 2 weeks. Call for appointment. Continue oxygen supplementation 24 x7 continuous as previously ordered. 2 L at rest and 3 L with activity Patient Instructions: Antibiotic Form, Apixaban (By mouth), How to Stop Smoking (DC), Blood
== END 2022-07-08 14:52 | disposition home or self-care (01) | DRG 140 ==
LOC: ANHED 19:06 → ANH3MED 07-04 01:49
PROVIDERS: Emergency Medicine; Student in an Organized Health Care Education/Training Program; Admitting Provider Internal Medicine; Emergency Provider Nurse Practitioner Family; PCP Family Medicine; Visit Provider Internal Medicine
DX: J44.1 Chronic obstructive pulmonary disease with (acute) exacerbation (principal); J96.21 Acute and chronic respiratory failure with hypoxia; J96.22 Acute and chronic respiratory failure with hypercapnia; I48.20 Chronic atrial fibrillation, unspecified; E78.5 Hyperlipidemia, unspecified; F17.209 Nicotine dependence, unspecified, with unspecified nicotine-induced disorders; Z20.822 Contact with and (suspected) exposure to COVID-19; Z79.01 Long term (current) use of anticoagulants; Z79.82 Long term (current) use of aspirin; Z28.311 Partially vaccinated for COVID-19; Z23 Encounter for immunization
CPT/HCPCS: 36415; 36600; 71045; 71275; 80053; 82805; 85025; 87502; 90471; 90686; 93005; 94618; 94640; 94667; 96374; 99285; A9270; C9803; G0008; J2920; J2930; J7512; Q9967; U0003; U0005